=== PATIENT | female | born 1950 | race Caucasian/White ===

== ENCOUNTER → 2020-01-22 | Outpatient (CLI) | payer OTHER | LOC: LAB SHORT 08:20 → PLD 08:20 | DX: D48.5 Neoplasm of uncertain behavior of skin (principal) | CPT/HCPCS: 88305 ==

== ENCOUNTER 2024-03-19 11:23 | Inpatient (IN) | payer OTHER ==
[~2024-03-19] VITALS: Ht 152.4 cm; Wt 51.8 kg
[2024-03-19 11:54] LABS: BASOPHILS ABSOLUTE AUTO 0.03 K/mm3 (0.00-0.23); BASOPHILS PERCENT AUTO 1 % (0-2); EOSINOPHILS ABSOLUTE AUTO 0.26 K/mm3 (0.00-0.68); EOSINOPHILS PERCENT AUTO 4 % (0-6); Hematocrit 39.9 % (33.0-51.0); Hemoglobin 12.7 g/dL (11.5-16.0); IMMATURE GRAN ABSOLUTE AUTO 0.02 K/mm3 (0.00-0.10); IMMATURE GRAN PERCENT AUTO 0 % (0-1); LYMPHOCYTES ABSOLUTE AUTO 1.89 K/mm3 (0.84-5.20); LYMPHOCYTES PERCENT AUTO 28 % (21-46); MONOCYTES PERCENT AUTO 5 % (4-13); Mean Corpuscular HGB 29.6 pg (26.0-34.0); Mean Corpuscular HGB Conc 31.8 g/dL (31.5-36.5); Mean Corpuscular Volume 93 fL (80-100); Mean Platelet Volume 9.5 fL (9.1-12.4); NEUTROPHILS ABSOLUTE AUTO 4.15 K/mm3 (1.96-9.15); NEUTROPHILS PERCENT AUTO 62 % (41-73); Platelet Count 280 K/mm3 (150-400); RDW Standard Deviation 47.4 fL (35.1-46.3); Red Blood Cell Count 4.29 M/mm3 (3.80-5.20); White Blood Cell Count 6.65 K/mm3 (4.00-11.30)
[2024-03-19 12:12] LABS: Albumin, Blood 3.7 g/dL (3.4-5.0); Bilirubin, Total 0.2 mg/dL (0.1-1.0); Bun/Creatinine Ratio 20.6 (12.0-20.0); Creatinine, Blood 0.63 mg/dL (0.40-1.00); Globulin, Blood 3.8 g/dL (2.2-4.0); Potassium, Blood 3.9 mmol/L (3.5-5.5); Total Protein, Blood 7.5 g/dL (6.4-8.2)
[2024-03-19] MEDS ORDERED: Aspirin 81 MG Chew PO ONE (14:30)
[2024-03-19] MEDS ORDERED: HydrALAZINE HCl 20 MG / ML 1ML Vial IV PRN (15:45)
[2024-03-19] MEDS ORDERED: Acetaminophen 500 MG Tab PO PRN (15:50)
[2024-03-19] MEDS ORDERED: Polyethylene Glycol 3350 17 gm PO PRN (15:50)
[2024-03-19 16:00] VITALS: BP 169/87
[2024-03-19] MEDS ORDERED: Clopidogrel Bisulfate 75 MG Tab PO SCH (16:00)
[2024-03-19] MEDS ORDERED: AmLODIPine Besylate 5 MG Tab PO ONE (16:00)
[2024-03-19] MEDS ORDERED: Atorvastatin 40 MG Tab PO SCH (16:00)
[2024-03-19 17:00] VITALS: BP 152/77
[2024-03-19 17:20] VITALS: BP 154/82
--- NOTE | 2024-03-19 17:20 | NUR ---
Admit: Report recieved from ED RN. Patient arrived to PCU 15 via gurney and was able to ambulate to the bed with 1PA, she has some RLE weakness so she was having some difficulty lifting foot to ambulate. NIH stroke scale is 2. She is alert and oirented x4. She reports she started noticing some right sided leg weakness on monday, and noticed her signature was different when signing birthday cards. NATALIE, medical laboratory manager equal. Tounge thrust midline, no difficulty speaking or swallowing. She has no pedal flexion to the RLE and was unable to hold that leg up IND. LS CTA, biox is high 90s on RA. She is SR in the 90s per telemetry, blood pressure is 150s systolic. BT+, PPP. No edema present. at bedside with belongings from home. Admission hx complete and medications reconciled. Patient encouraged to call when ambulating to the bathroom due to RLE weakness. Call light in reach.
[2024-03-19 19:56] VITALS: BP 138/85
--- NOTE | 2024-03-19 21:40 | NUR ---
ASSUMPTION OF CARE AFTER RECEIVING REPORT FROM STEPHANIA GLOVER, THIS RN ASSUMED CARE AT APPROX 1915. PATIENT AWAKE, ALERT AND ORIENTED X4. MILD RLE WEAKNESS WITH DIFFICULTY LIFTING FOOT ASSESSED. PERRLA. STRATEGY ANALYST EQUAL. NO DIFFICULTY SPEAKING OR SWALLOWING. TONGUE THRUST MIDLINE. NIH SCALE 2. COMMUNICATES NEEDS EFFECITVELY. RECEPTIVE TO EDUCATION. TELEMETRY SHOWING SINUS 90s. BP STABLE, SBP 130s. DENIES CHEST PAIN, PRESSURE. ON ROOM AIR, SATs >90%. RESPIRATIONS EVEN, UNLABORED AT REST. PATIENT REPOSITIONS HERSELF INDEPENDENTLY IN BED. IS A SBA WITH FWW DUE TO RLE WEAKNESS WITH MOBILITY. CALL LIGHT IN REACH.
[2024-03-19 23:09] VITALS: BP 128/69
[2024-03-20 04:01] VITALS: BP 138/79
[2024-03-20 04:08] LABS: Hematocrit 35.7 % (33.0-51.0); Hemoglobin 11.5 g/dL (11.5-16.0); Mean Corpuscular HGB 29.6 pg (26.0-34.0); Mean Corpuscular HGB Conc 32.2 g/dL (31.5-36.5); Mean Corpuscular Volume 92 fL (80-100); Mean Platelet Volume 9.2 fL (9.1-12.4); Platelet Count 252 K/mm3 (150-400); RDW Coefficient Variation 14.1 % (11.7-14.2); RDW Standard Deviation 47.5 fL (35.1-46.3); Red Blood Cell Count 3.88 M/mm3 (3.80-5.20); White Blood Cell Count 6.59 K/mm3 (4.00-11.30)
[2024-03-20 04:28] LABS: Albumin, Blood 3.2 g/dL (3.4-5.0); Anion Gap 7 mmol/L (3-11); Blood Urea Nitrogen 15 mg/dL (8-24); CO2, Blood 28 mmol/L (21-32); Calcium, Blood 8.6 mg/dL (8.5-10.1); Chloride, Blood 112 mmol/L (98-108); Creatinine, Blood 0.68 mg/dL (0.40-1.00); Glomerular Filtration Rate 90 (60-); Glucose, Blood 109 mg/dL (70-99); Phosphorus, Blood 3.3 mg/dL (2.5-4.9); Potassium, Blood 3.9 mmol/L (3.5-5.5); Sodium, Blood 143 mmol/L (136-145)
--- NOTE | 2024-03-20 04:49 | NUR ---
SHIFT SUMMARY NO ACUTE EVENTS SINCE ASSUMPTION OF CARE. PATIENT SLEPT THROUGHOUT SHIFT, EASILY AROUSABLE WITH VERBAL STIMULI. REMAINS ALERT AND ORIENTED X4. RLE WEAKNESS SEEMS TO BE IMPROVING SINCE ASSUMPTION OF CARE PATIENT IS NOW ABLE TO LIFT EXTREMITY MORE TO TAKE A STEP WHEN AMBULATING. PERRLA. BOBBIN DUMPER EQUAL. NO DIFFICULTY SPEAKING OR SWALLOWING. TONGUE THRUST MIDLINE. NIH SCALE REMAINS 2. TELEMETRY SHOWING SINUS 70s. BP STABLE, SBP 130s. DENIES CHEST PAIN, PRESSURE. REMAINS ON ROOM AIR, SATs >90%. RESPIRATIONS EVEN, UNLABORED. REPOSITIONS HERSELF INDPENDENTLY IN BED. SBA WITH FWW TO RESTROOM. VOIDING. NO BM THIS SHIFT. CALL LIGHT IN REACH. WILL CONTINUE TO MONITOR AND REPORT TO ONCOMING RN.
[2024-03-20 08:28] VITALS: BP 127/86
[2024-03-20] MEDS ORDERED: Aspirin 81 MG Chew PO SCH (09:00)
--- NOTE | 2024-03-20 10:37 | NUR ---
Pt is alert, oriented and cooperative. Noted deficits neurologically are right foot limited ROM, weakness, and pt also states that her handwriting is not her usual. She was ambulatory to the bathroom with standby assistance this morning, using the walker. Did have some instability when her right foot wasn't aligned properly during a turn. Echocardiogram was completed this morning. Waiting on PT/OT to see the patient today. Dr. Gillette saw the patient, still waiting on results of testing.
[2024-03-20] MEDS ORDERED: ASPI81CH PO (15:23)
[2024-03-20] MEDS ORDERED: ATOR40TA PO (15:23)
[2024-03-20] MEDS ORDERED: CLOP75 PO (15:24)
[2024-03-20] MEDS ORDERED: PANT40 PO (15:25)
[2024-03-20] MEDS ORDERED: MIRALAX17 GM PO (15:25)
[2024-03-20] MEDS ORDERED: LISI5 PO (15:25)
--- NOTE | 2024-03-20 15:55 | NUR ---
Pt education done for discharge with the patient and her , Star. Reviewed medications, recommendation to establish with PCP within the next week, and call to get appointment with a physical therapist, as well as communicating with [facility] for follow up. Pt was taken out in wheelchair by the PCT to private vehicle driven by the pt's .
== END 2024-03-20 15:54 | disposition home or self-care (01) | DRG 66 ==
LOC: ER 11:23 → PCU 15:42
PROVIDERS: Physician Assistant; ADMIT Internal Medicine
DX: I63.9 Cerebral infarction, unspecified (principal); G83.11 Monoplegia of lower limb affecting right dominant side; I10 Essential (primary) hypertension
CPT/HCPCS: 36415; 70450; 70496; 70498; 80053; 80069; 83036; 85025; 85027; 93005; 93010; 93306; 97112; 97116; 97162; 97165; 97535; 99285-25; A9270; Q9967